=== PATIENT | female | born 1945 | race Caucasian/White ===

== ENCOUNTER 2019-05-31 11:39 | Emergency (ER) | payer MEDICARE, BC, OTHER ==
[~2019-05-31] VITALS: Ht 165.1 cm; Wt 86.2 kg
[~2019-05-31 11:39] MED LIST: CIPROFLOXACIN500 M1 PO; DYAZIDE 37.5-21 EACH PO; ESTROGEN PATCH; ESTROGEN TRANSDERM; INVANZ 1GM/NS 101 GM IV; NORCO 5-325 TA1 EACH PO; NORVASC 5 MG TAB5 MG PO; PROTONIX40 M1 PO; PYRIDIUM200 M2 PO; SYNTHROID75 MCG PO
[2019-05-31 12:09] LABS: URINE BILIRUBIN NEGATIVE (Negative); URINE BLOOD 2+ (Negative); URINE CLARITY CLEAR; URINE COLOR YELLOW; URINE GLUCOSE-RANDOM NEGATIVE (Negative); URINE KETONES NEGATIVE (Negative); URINE LEUKOCYTES-REFLEX TRACE (Negative); URINE NITRITE-REFLEX NEGATIVE (Negative); URINE PROTEIN NEGATIVE (Negative); URINE SPECIFIC GRAVITY <= 1.005 (1.005-1.030); URINE UROBILINOGEN 0.2 E.U./dl (0.2-1.0)
[2019-05-31 12:17] LABS: SQUAMOUS 4-10 Moderate /LPF (0-3)
[2019-05-31 12:18] LABS: URINE RBC 0-2 Rare /HPF (0-2); URINE WBC-REFLEX 6-15 Few /HPF (0-5); WBC CLUMPS Few (None Seen)
[2019-05-31 12:19] LABS: CASTS None Seen /LPF (None Seen); CRYSTALS None Seen /LPF (None Seen); MUCUS None Seen strn/LPF (None Seen)
[2019-05-31] MEDS ORDERED: MACROBID 100 M100 M2 PO (12:25)
[2019-05-31 12:58] VITALS: BP 178/89
== END 2019-05-31 12:58 | disposition home or self-care (01) ==
LOC: M.ERS 11:39
PROVIDERS: Nurse Practitioner Family
DX: N30.10 Interstitial cystitis (chronic) without hematuria (principal); I10 Essential (primary) hypertension; Z88.8 Allergy status to other drugs, medicaments and biological substances

== ENCOUNTER → 2019-06-05 | Outpatient (CLI) | payer MEDICARE, BC, OTHER ==
[~2019-06-05] MED LIST changes: +MACROBID 100 M100 M2 PO
[2019-06-05 09:20] LABS: ABSOLUTE BASOPHILS 0.1 thou/uL (0.0-0.2); ABSOLUTE EOSINOPHILS 0.1 thou/uL (0.0-0.7); ABSOLUTE LYMPHOCYTES 2.9 thou/uL (0.8-5.3); ABSOLUTE MONOCYTES 0.8 thou/uL (0.0-1.2); ABSOLUTE NEUTROPHILS 5.6 thou/uL (1.6-8.1); BASOPHILS 1.3 %; EOSINOPHILS 1.3 %; HEMATOCRIT 48.5 % (37.0-47.0); HEMOGLOBIN 16.2 gm/dL (12.0-15.0); LYMPHOCYTES 30.8 %; MCH 30.7 pg (26.0-34.0); MCHC 33.4 g/dL (28.0-37.0); MCV 91.9 fL (80.0-100.0); MONOCYTES 8.3 %; MPV 8.5 fl. (7.2-11.1); NUCLEATED RBCS 0 /100WBC; PLATELET COUNT* 203 thou/uL (150-400); POLYS 58.3 %; RBC 5.28 mil/uL (4.20-5.00); RDW-CV 14.3 % (10.5-14.5); WBC 9.5 thou/uL (4.0-11.0)
[2019-06-05 09:40] LABS: ALBUMIN 3.5 g/dL (3.4-5.0); ALKALINE PHOSPHATASE 64 U/L (46-116); ANION GAP 6 mmol/L (7-16); BUN 20 mg/dL (7-18); CALCIUM 8.8 mg/dL (8.5-10.1); CHLORIDE 104 mmol/L (98-107); CHOLESTEROL 207 mg/dL (<200); CO2 33 mmol/L (21-32); GLUCOSE 95 mg/dL (70-99); HDL CHOLESTEROL 63 mg/dL (>40); LDL CHOLESTEROL 107 mg/dL (<100); POTASSIUM 4.3 mmol/L (3.5-5.1); SGOT 18 U/L (15-37); SGPT 34 U/L (30-65); SODIUM 143 mmol/L (136-145); TC:HDL 3.3 Ratio (Not establshd); TOTAL BILIRUBIN 0.5 mg/dL (<0.1-1.0); TOTAL PROTEIN 7.7 g/dL (6.4-8.2); TRIGLYCERIDE 187 mg/dL (<150); VLDL 37 mg/dL (<40)
[2019-06-05 09:41] LABS: SERUM ASSESSMENT Clear
[2019-06-05 21:10] LABS: LDL (DIRECT) CHOL 123 mg/dL (0-99)
[2019-06-06 02:10] LABS: GLYCOHEMOGLOBIN (HGB A1C) 6.2 % (4.8-5.6)
== END ==
LOC: M.LAB 08:51
PROVIDERS: Family Medicine
DX: E03.9 Hypothyroidism, unspecified (principal); I10 Essential (primary) hypertension; J45.909 Unspecified asthma, uncomplicated; R73.09 Other abnormal glucose

== ENCOUNTER → 2020-10-12 | Outpatient (CLI) | payer MEDICARE, BC, OTHER ==
[2020-10-12 08:44] LABS: HEMATOCRIT 49.9 % (37.0-47.0); HEMOGLOBIN 16.3 gm/dL (12.0-15.0); MCH 30.4 pg (26.0-34.0); MCHC 32.7 g/dL (28.0-37.0); MCV 92.8 fL (80.0-100.0); MPV 8.4 fl. (7.2-11.1); RBC 5.38 mil/uL (4.20-5.00); RDW-CV 14.6 % (10.5-14.5); WBC 9.7 thou/uL (4.0-11.0)
[2020-10-12 08:59] LABS: ALBUMIN 3.4 g/dL (3.4-5.0); ALKALINE PHOSPHATASE 59 U/L (46-116); ANION GAP 6 mmol/L (7-16); BUN 21 mg/dL (7-18); CALCIUM 9.3 mg/dL (8.5-10.1); CHLORIDE 103 mmol/L (98-107); CHOLESTEROL 228 mg/dL (<200); CO2 34 mmol/L (21-32); GLUCOSE 98 mg/dL (70-99); HDL CHOLESTEROL 73 mg/dL (>40); LDL CHOLESTEROL 116 mg/dL (<100); POTASSIUM 3.8 mmol/L (3.5-5.1); SERUM ASSESSMENT Clear; SGOT 17 U/L (15-37); SGPT 29 U/L (30-65); SODIUM 143 mmol/L (136-145); TC:HDL 3.1 Ratio (Not establshd); TOTAL BILIRUBIN 0.4 mg/dL (<0.1-1.0); TOTAL PROTEIN 7.6 g/dL (6.4-8.2); TRIGLYCERIDE 199 mg/dL (<150); VLDL 40 mg/dL (<40)
[2020-10-12 11:06] LABS: URINE BILIRUBIN NEGATIVE (Negative); URINE BLOOD NEGATIVE (Negative); URINE CLARITY CLEAR; URINE COLOR YELLOW; URINE GLUCOSE-RANDOM NEGATIVE (Negative); URINE KETONES NEGATIVE (Negative); URINE LEUKOCYTES-REFLEX NEGATIVE (Negative); URINE NITRITE-REFLEX NEGATIVE (Negative); URINE PROTEIN NEGATIVE (Negative); URINE SPECIFIC GRAVITY 1.015 (1.005-1.030); URINE UROBILINOGEN 0.2 E.U./dl (0.2-1.0)
[2020-10-12 22:06] LABS: LDL (DIRECT) CHOL 131 mg/dL (0-99)
[2020-10-13 02:06] LABS: GLYCOHEMOGLOBIN (HGB A1C) 6.4 % (4.8-5.6)
== END ==
LOC: M.LAB 08:26
PROVIDERS: ATTEND Family Medicine
DX: Z00.01 Encounter for general adult medical examination with abnormal findings (principal); Z85.038 Personal history of other malignant neoplasm of large intestine; E53.8 Deficiency of other specified B group vitamins

== ENCOUNTER → 2020-10-18 | Outpatient (CLI) | payer MEDICARE, BC, OTHER | LOC: M.LAB 11:01 | PROVIDERS: ATTEND Family Medicine | DX: Z00.01 Encounter for general adult medical examination with abnormal findings (principal); Z85.038 Personal history of other malignant neoplasm of large intestine; E53.8 Deficiency of other specified B group vitamins ==

== ENCOUNTER 2021-04-23 12:41 | Emergency (ER) | payer MEDICARE, BC, OTHER ==
[~2021-04-23] VITALS: Ht 165.1 cm; Wt 79.4 kg
[2021-04-23] MEDS ORDERED: MEDROL4 MG PO ×2 (13:33)
[2021-04-23] MEDS ORDERED: HYDROCODON-ACE1 EAC7 PO (14:50)
[2021-04-23 15:00] LABS: URINE BILIRUBIN NEGATIVE (Negative); URINE BLOOD 1+ (Negative); URINE CLARITY HAZY; URINE COLOR YELLOW; URINE GLUCOSE-RANDOM NEGATIVE (Negative); URINE KETONES NEGATIVE (Negative); URINE LEUKOCYTES-REFLEX TRACE (Negative); URINE NITRITE-REFLEX NEGATIVE (Negative); URINE PROTEIN NEGATIVE (Negative); URINE SPECIFIC GRAVITY 1.015 (1.005-1.030); URINE UROBILINOGEN 0.2 E.U./dl (0.2-1.0)
[2021-04-23 15:01] LABS: CASTS None Seen /LPF (None Seen); CRYSTALS None Seen /LPF (None Seen); SQUAMOUS >10 Many /LPF (0-3); URINE RBC 3-10 Few /HPF (0-2); URINE WBC-REFLEX 6-15 Few /HPF (0-5)
[2021-04-23] MEDS ORDERED: CEPHALEXIN500 MG PO (15:05)
[2021-04-23 15:22] VITALS: BP 187/90
== END 2021-04-23 15:15 | disposition home or self-care (01) ==
LOC: M.ERS 12:41
PROVIDERS: Physician Assistant
DX: M54.59 Other low back pain (principal); N39.0 Urinary tract infection, site not specified; I10 Essential (primary) hypertension; J45.909 Unspecified asthma, uncomplicated; Z90.710 Acquired absence of both cervix and uterus; Z90.89 Acquired absence of other organs; Z79.899 Other long term (current) drug therapy; Z88.8 Allergy status to other drugs, medicaments and biological substances

== ENCOUNTER → 2021-04-26 | Outpatient (CLI) | payer MEDICARE, BC ==
[~2021-04-26] MED LIST changes: +CEPHALEXIN500 MG PO; +HYDROCODON-ACE1 EAC7 PO; +MEDROL4 MG PO
[2021-04-27 21:06] LABS: ANA INTERPRETATION Positive (())
[2021-04-28 12:07] LABS: ANTI-SSA <0.2 AI (0.0-0.9)
[2021-04-28 16:06] LABS: GLOBULIN TOTAL 3.5 g/dL (2.2-3.9); M-SPIKE Not Observed g/dL (Not Observed)
== END ==
LOC: M.MRI 04-13 11:30
PROVIDERS: ATTEND Psychiatry & Neurology Neuromuscular Medicine
DX: M43.16 Spondylolisthesis, lumbar region (principal); M47.26 Other spondylosis with radiculopathy, lumbar region; M51.16 Intervertebral disc disorders with radiculopathy, lumbar region; M51.17 Intervertebral disc disorders with radiculopathy, lumbosacral region; N28.1 Cyst of kidney, acquired; R20.2 Paresthesia of skin